=== PATIENT | female | born 1980 | race Two or more races ===

== ENCOUNTER 2018-04-08 12:33 | Emergency (ER) | payer MEDICAID ==
[~2018-04-08] VITALS: Ht 165.1 cm; Wt 68.0 kg
[2018-04-08 12:35] VITALS: BP 126/75
--- NOTE | 2018-04-08 12:35 | NUR ---
ED Nurse Note: PT BROUGHT IN BY [id number] FROM HOME. AOX4. PT C/O ABDOMINAL PAIN, 10/10, NAUSEA, AND MULTIPLE EPISODES OF VOMITING AND DIARRHEA X YESTERDAY. ACTIVE BOWEL SOUNDS IN ALL QUADRANTS. ABDOMEN NONDISTENDED AND NONTENDER TO PALPATION. LAST BM X THIS AM WHICH PT STATES WAS LIQUID.
[2018-04-08 13:16] LABS: HEMATOCRIT 26.6 % (37.0-47.0); HEMOGLOBIN 7.8 G/DL (12.0-16.0); MEAN CORPUSCULAR VOLUME 73 FL (80-99); PLATELET COUNT 171 K/UL (150-450); RED BLOOD COUNT 3.67 M/UL (4.20-5.40); RED CELL DISTRIBUTION WIDTH 20.5 % (11.6-14.8); WHITE BLOOD COUNT 5.4 K/UL (4.8-10.8)
[2018-04-08 13:31] LABS: ANION GAP 13 mmol/L (5-15); BLOOD UREA NITROGEN 6 mg/dL (7-18); CALCIUM 8.6 MG/DL (8.5-10.1); CARBON DIOXIDE 21 MMOL/L (21-32); CHLORIDE 103 MMOL/L (98-107); CREATININE 0.7 MG/DL (0.55-1.30); POTASSIUM 3.8 MMOL/L (3.5-5.1); SODIUM 137 MMOL/L (136-145)
[2018-04-08 13:36] LABS: ALANINE AMINOTRANSFERASE 16 U/L (12-78); ALBUMIN 3.6 G/DL (3.4-5.0); ALBUMIN/GLOBULIN RATIO 1.1 (1.0-2.7); ALKALINE PHOSPHATASE 44 U/L (46-116); ASPARTATE AMINO TRANSFERASE 23 U/L (15-37); BILIRUBIN,TOTAL 0.4 MG/DL (0.2-1.0)
--- NOTE | 2018-04-08 13:45 | Emergency Room Report ---
History of Present Illness General Chief Complaint: Flu Like Symptoms Source: Patient Present Illness HPI 38-year-old female reporting no significant past medical history brought in by ambulance complaining of one day of multiple bouts of nonbloody vomiting, nausea , and 1 bout of nonbloody diarrhea. Ports at home she had a temperature of 102. Complains of cough and sore throat. Patient has not taken any medication other than ibuprofen for symptom relief. She reports tasting the medicine mouth every time she vomits. Complains of lightheadedness and dizziness. Complains of abdominal pain however denies urinary symptoms, chest pain, shortness of breath, palpitation, wheezing, and all other associated symptoms. After being started on IV fluids and blood work when patient was told that she has anemia she reports that she has history of dysmenorrhea for the past 13 years and has never brought it up to her primary care physician. Patient reports that she does not believe in Western medicine and she has been taking herbal medicine for her anemia. Prior to blood work patient did not mention any history of anemia. Complains of dizziness throughout the course of hospitalization in the ER. Denies sick contacts and recent travel Allergies: Coded Allergies: PENICILLINS (Verified Allergy, Unknown, 04/08/18) Patient History Past Medical History: see triage record Pertinent Family History: none Now: No Immunizations: UTD Reviewed Nursing Documentation: PMH: Agreed; PSxH: Agreed Nursing Documentation-PMH Past Medical History: No History, Except For Hx Cardiac Problems: No - PARKINSON Review of Systems All Other Systems: negative except mentioned in HPI Physical Exam Vital Signs Date Time Temp Pulse Resp B/P (MAP) Pulse Ox O2 Delivery O2 Flow Rate FiO2 04/08/18 12:28 97.5 69 18 119/71 99 Room Air Sp02 EP Interpretation: reviewed, normal General Appearance: mild distress Head: normocephalic, atraumatic Eyes: bilateral eye normal inspection, bilateral eye PERRL ENT: normal ENT inspection, normal pharynx Neck: normal inspection, full range of motion, supple Respiratory: normal inspection, chest non-tender, lungs clear, no rhonchi, no respiratory distress, no wheezing Cardiovascular #1: normal inspection, regular rate, rhythm, no edema Gastrointestinal: normal inspection, non tender, soft, other - negative McBurney's and Rovsing Rectal: deferred Genitourinary: no CVA tenderness Musculoskeletal: normal inspection, back normal Neurologic: normal inspection, alert, oriented x3 Psychiatric: normal inspection, judgement/insight normal Skin: normal inspection, normal color, no rash, warm/dry Lymphatic: normal inspection, no adenopathy Medical Decision Making PA Attestation all diagnoses and treatment plans were reviewed and discussed with my supervising physician Dr. Valiente Diagnostic Impression: Primary Impression: Gastroenteritis Additional Impressions: URI (upper respiratory infection) Anemia ER Course 38-year-old female reporting no significant past medical history brought in by ambulance complaining of one day of multiple bouts of nonbloody vomiting, nausea , and 1 bout of nonbloody diarrhea. Ports at home she had a temperature of 102. Complains of cough and sore throat. Patient has not taken any medication other than ibuprofen for symptom relief. She reports tasting the medicine mouth every time she vomits. Complains of lightheadedness and dizziness. Complains of abdominal pain however denies urinary symptoms, chest pain, shortness of breath, palpitation, wheezing, and all other associated symptoms. After being started on IV fluids and blood work when patient was told that she has anemia she reports that she has history of dysmenorrhea for the past 13 years and has never brought it up to her primary care physician. Patient reports that she does not believe in Western medicine and she has been taking herbal medicine for her anemia. Prior to blood work patient did not mention any history of anemia. Complains of dizziness throughout the course of hospitalization in the ER. Denies sick contacts and recent travel Ddx considered but are not limited to influenza A, viral gastroenteritis, URI, anemia, appendicitis Vital signs: are WNL, pt. is afebrile H&PE are most consistent with URI, viral gastroenteritis, anemia ORDERS: Zofran, Pepcid, normal saline, CBC, CMP, UA, urine , influenza A and B swab, Phenergan, ferrous sulfate ED INTERVENTIONS: normal saline fluid, Zofran, Pepcid DISCHARGE: At this time pt. is stable for d/c to home. Will provide printed patient care instructions, and any necessary prescriptions. Care plan and follow up instructions have been discussed with the patient prior to discharge. patient to establish a primary care physician for further assessment of abnormal uterine bleeding as abdominal ultrasound and pelvic ultrasound needed to rule out fibroids and other etiologies of anemia. Patient has hemoglobin of 7.8 still no need for contrast infusion however does need to take iron 3 times a day patient is a vegetarian and has been educated on food that is respiring hemoglobin 7.8 Last Vital Signs Date Time Temp Pulse Resp B/P (MAP) Pulse Ox O2 Delivery O2 Flow Rate FiO2 04/08/18 12:35 97.9 77 13 126/75 98 Room Air Disposition: HOME, SELF-CARE Condition: Stable Scripts Ferrous Sulfate* (FERROUS SULFATE*) 325 Mg Tablet 325 MG ORAL THREE TIMES A DAY, #90 TAB 0 Refills Prov: Flakito Ho 04/08/18 Ondansetron* (ZOFRAN*) 4 Mg Tablet 4 MG ORAL Q6H PRN for Nausea & Vomiting, #20 TAB Prov: Flakito Ho 04/08/18 Promethazine Hcl (PROMETHAZINE HCL*) 6.25 Mg/5 Ml Syrup 5 ML ORAL Q6H, #120 ML 0 Refills Prov: Flakito Ho 04/08/18 Patient Instructions: Iron Deficiency Anemia, Adult, [id number], Upper Respiratory Infection, Adult, [id number], Viral Gastroenteritis, Adult, Easy- to-Read Additional Instructions: take medication as directed, BRAT diet advised. electrolyte water. follow up with pcp if symptoms worsen. establish a primary care physician for further assessment of increased uterine bleeding take iron as directed increase food rich in iron Flakito Ho Apr 08, 2018 13:45
[2018-04-08] MEDS ORDERED: PROMETHAZI6.25 MG/1 ORAL (13:49)
[2018-04-08] MEDS ORDERED: ZOFRAN4 M3 ORAL (13:49)
[2018-04-08] MEDS ORDERED: FERROUS SULFAT325 MG ORAL (14:07)
[2018-04-08 14:29] VITALS: BP 126/77
--- NOTE | 2018-04-08 14:30 | NUR ---
ER Nurse Note: PT LAYING PEACEFULLY IN BED IN NAD. AO4. PRESCRIPTIONS AND DISCHARGE PAPERWORK EXPLAINED TO PT. PT VERBALIZES UNDERSTANDING AND ALL QUESTIONS ANSWERED. PRESCRIPTIONS AND DISCHARGE PAPERWORK GIVEN TO PT, IV AND ID WRISTBAND REMOVED. PT WALKED OUT OF ER WITH STEADY GAIT AND ALL BELONGINGS.
== END 2018-04-08 14:29 | disposition home or self-care (01) ==
LOC: EDBD 12:33 → EMR 14:04
DX: K52.9 Noninfective gastroenteritis and colitis, unspecified (principal); J06.9 Acute upper respiratory infection, unspecified; D64.9 Anemia, unspecified; G20 Parkinson's disease; Z88.0 Allergy status to penicillin; R42 Dizziness and giddiness
CPT/HCPCS: 36415; 80053; 85007; 85025; 86710; 96361; 96374; 96375; 99284; J2405; S0028